=== PATIENT | female | born 1970 | race Caucasian/White ===

== ENCOUNTER 2017-10-07 22:27 | Inpatient (IN) | payer MEDICARE, MEDICAID ==
--- NOTE | 2017-10-07 22:33 | ED Physician Chart ---
ED Chief Complaint/HPI - Patient Information Date Seen:: 10/07/17 Time Seen:: 22:15 Chief Complaint:: Seizures History of Present Illness:: onset x one day of intermittent seizures x 3; no report of trauma, H/As, neck pain, C/P, SOb, Abd. Pain, A/N/V/D/c, fever, chills, or urinary s/s Allergies:: Allergies Allergy/AdvReac Type Severity Reaction Status Date / Time No Known Allergies Allergy Verified 05/06/16 08:46 Historian:: Patient, EMS Review:: Nurse's Note Reviewed, Old Chart Reviewed, EMS run form Reviewed ED Review of Systems - Review of Systems General/Constitutional: No fever, No chills, No weight loss, No weakness, No diaphoresis, No edema, No loss of appetite Skin: No skin lesions, No rash, No bruising Head: No headache, No light-headedness Eyes: No loss of vision, No pain, No diplopia ENT: No earache, No nasal drainage, No sore throat, No tinnitus Neck: No neck pain, No swelling, No thyromegaly, No stiffness, No mass noted Cardio Vascular: No chest pain, No palpitations, No PND, No orthopnea, No edema Pulmonary: No SOB, No cough, No sputum, No wheezing GI: No nausea, No vomiting, No diarrhea, No pain, No melena, No hematochezia, No constipation, No hematemesis G/U: No dysuria, No frequency, No hematuria, No nacturia Diver Helper: No vaginal discharge, No abnormal vaginal bleed, No contraction Musculoskeletal: No bone or joint pain, No back pain, No muscle pain Endocrine: No polyuria, No polydipsia Psychiatric: No prior psych history, No depression, No anxiety, No suicidal ideation, No homicidal ideation, No auditory hallucination, No visual hallucination Hematopoietic: No bruising, No lymphadenopathy Allergic/Immuno: No urticaria, No angioedema Neurological: No syncope, No focal symptoms, No weakness, No paresthesia, No headache, Seizure, No dizziness, Confusion, No vertigo ED Past Medical History - Past Medical History Obtainable: Yes Past Medical History: PUD/GERD, Seizures, Arthritis, Dementia Family History: Diabetes Melitus, HTN Social History: Non Smoker, No Alcohol, No Drug Use, Single, Care Facility Surgical History: PEG/GTube Psychiatricy History: Dementia Medication: Reviewed Family Medical History - Family Member Nephew History Unknown: Yes ED Physical Exam - Physical Examination General/Constitutional: Awake, Well-developed, well-nourished, Alert, No distress, GCS 15, Non-toxic appearing, Ambulatory Head: Atraumatic Eyes: Lids, conjuctiva normal, PERRL, EOMI Skin: Nl inspection, No rash, No skin lesions, No ecchymosis, Well hydrated, No lymphadenopathy ENMT: External ears, nose nl, TM canals nl, Nasal exam nl, Lips, teeth, gums nl , Oropharynx nl, Tonsils nl Neck: Nontender, Full ROM w/o pain, No JVD, No nuchal rigidity, No bruit, No mass, No stridor Respiratory: Nl effort/Exclusion Other Respiratory comments:: Lungs: + Rales and Rhonci Cardio Vascular: RRR, No murmur, gallop, rubs, NL S1 S2, Carotid/Femoral/Distal pulses equal bilaterally GI: No tenderness/rebounding/guarding, No organomegaly, No hernia, Normal BS's, Nondistended, No mass/bruits, No McBurney tenderness : No CVA tenderness Extremities: No tenderness or effusion, Full ROM, normal strength in all extremities, No edema, Normal digits & nails Neuro/Psych: Alert/oriented, DTR's symmetric, Normal sensory exam, Normal motor strength, Judgement/insight normal, Mood normal, Normal gait, No focal deficits Misc: Normal back, No paraspinal tenderness ED Labs/Radiology/EKG Results - Lab Results Comments:: WBC: 12.6; Na+: 134; LA: 3.11 - Radiology Results Comments:: CXR: + Infiltrate - EKG Interpretations EKG Time:: 01:32 Rate & Rhythm: 81; NSR Comments:: non-specific st-t changes ED Septic Shock - . Is Septic Shock (SBP<90, OR Lactate>4 mmol\L) present?: No ED Reassessment (Disposition) - Reassessment Reassessment Condition:: Improved - Diagnosis Diagnosis:: PNA; Sepsis; Leukocytosis; Epilepsy - Aftercare/Follow up Instructions Aftercare/Follow-Up Instructions:: Counseled pt regarding lab results/diagnosis & need follow up, Counseled pt & family regarding lab results/diagnosis & need follow up - Patient Disposition Discharge/Transfer:: Acute Care w/in this hosp Accepting Physician:: Dr. Javier Time Called:: 29 Time Responded:: 00:30 Admitted to:: Telemetry Spoke to:: Dr. Javier Admitting Medical Physician:: Dr. Javier Condition at Disposition:: Stable, Improved
[2017-10-08 00:08] LABS: HEMATOCRIT 40.1 % (41.0-60); HEMOGLOBIN 13.7 gm/dL (12-16); MANUAL DIFF REQUIRED? YES; MEAN CELL VOLUME 94.5 fl (81-100); MEAN CORPUSCULAR HEMOGLOBIN 32.2 pg (27.0-31.0); MEAN CORPUSCULAR HGB CONC 34.1 pg (28.0-36.0); MEAN PLATELET VOLUME 8.4 fl; RED BLOOD COUNT 4.25 Mil/cmm (3.80-5.10); RED CELL DISTRIBUTION WIDTH 12.5 % (11.5-20.0)
[2017-10-08 00:17] LABS: PLATELET COUNT 240 Th/cmm (150-400); WHITE BLOOD COUNT 12.6 Th/cmm (4.8-10.8)
[2017-10-08 00:24] LABS: ALB/GLOB RATIO 1.4 (1.0-1.8); ALBUMIN 4.3 gm/dL (3.7-5.3); ALKALINE PHOSPHATASE 77 U/L (34-104); ANION GAP 14.8 (7.0-16.0); BILIRUBIN,TOTAL 0.3 mg/dL (0.3-1.0); BUN - UREA NITROGEN 16 mg/dL (7-25); CALCIUM SERUM 9.3 mg/dL (8.6-10.3); CARBON DIOXIDE 24.5 mEq/L (21.0-31.0); CHLORIDE 99 mEq/L (98-107); CHOLESTEROL 178 mg/dL (<200); CREATININE - SERUM 0.5 mg/dL (0.6-1.2); CREATININE KINASE 57 U/L (30-223); GFR AFRICAN-AMERICAN > 60.0 ml/min (>90); GFR NON AFRICAN-AMERICAN > 60.0 ml/min; GLUCOSE 119 mg/dL (70-105); HDL -HIGH DENSITY LIPOPROTEIN 66 mg/dL (23-92); INR 0.99 (0.5-1.4); POTASSIUM SERUM 4.3 mEq/L (3.5-5.1); PROTHROMBIN TIME (TEST) 10.3 SECONDS (9.5-11.5); SGOT 23 U/L (13-39); SGPT/ALT 25 U/L (7-52); SODIUM SERUM 134 mEq/L (136-145); TOTAL PROTEIN,SERUM 7.4 gm/dL (6.0-8.3); TRIGLYCERIDES 54 mg/dL (<150)
[2017-10-08 00:34] LABS: BAND NEUTROPHILE 4 % (0-10); EOSINOPHIL 1 % (0-5); LYMPHOCYTE 7 % (20-50); MONOCYTE 3 % (2-10); NEUTROPHILS 85 % (40-80); PLATELET ESTIMATE ADEQUATE (NORMAL); TOTAL CELLS COUNTED 100
[2017-10-08] MEDS: Sodium Chloride 0.9% 1,000 ML IV ONE ×2 (03:00→10:53)
[2017-10-08] MEDS ORDERED: cefTRIAXone 1 GM in Sodium Chloride 0.9% 50 ML IV ONE (03:01)
[2017-10-08] MEDS ORDERED: metroNIDAZOLE 500mg/NS 100mL 500 MG/100 ML BAG IV ONE (06:53)
[2017-10-08] MEDS ORDERED: Albuterol/Ipratropium Neb 3 ML AERS HHN PRN (06:56)
[2017-10-08] MEDS ORDERED: Azithromycin 250 MG in Sodium Chloride 0.9% 250 ML IV SCH (07:00)
--- NOTE | 2017-10-08 07:44 | Diagnostic Imaging Report ---
Portable chest x-ray Time: 0150 hours History: Cough Allowing for portable technique the heart size is normal. No focal pulmonary parenchymal processes. No hilar or mediastinal abnormalities. Incidentally noted distention of stomach with air. Clinical correlation recommended. Impression: No acute abnormalities.
[2017-10-08] MEDS ORDERED: Fleet Enema 135 mL RC PRN (09:30)
[2017-10-08] MEDS ORDERED: Non-Formulary Item 1 EA (Calcium Carbonate [Calcium Carbonate] 1,250 MG) GT SCH (09:30)
[2017-10-08] MEDS ORDERED: RUFINAMIDE 400 MG GT SCH (09:30)
[2017-10-08] MEDS ORDERED: Non-Formulary Item 1 EA (Lamotrigine [Lamotrigine] 200 MG) GT SCH (09:30)
[2017-10-08] MEDS ORDERED: Non-Formulary Item 1 EA (Dexlansoprazole [Dexilant] 60 MG) GT SCH (09:30)
[2017-10-08 09:34] LABS: % BASOPHILS 0.5 % (0.0-2.0); % EOSINOPHILS 0.1 % (0.0-5.0); % MONOCYTES 8.6 % (2.0-10.0); % NEUTROPHILS 76.8 % (40.0-80.0); HEMATOCRIT 37.4 % (41.0-60); HEMOGLOBIN 12.5 gm/dL (12-16); MEAN CELL VOLUME 96.5 fl (81-100); MEAN CORPUSCULAR HEMOGLOBIN 32.3 pg (27.0-31.0); MEAN CORPUSCULAR HGB CONC 33.4 pg (28.0-36.0); MEAN PLATELET VOLUME 8.9 fl; MONOCYTE ABSOLUTE 0.6 Th/cmm (0.3-1.0); NEUTROPHILE ABSOLUTE 5.9 Th/cmm (1.8-8.0); PLATELET COUNT 215 Th/cmm (150-400); RED BLOOD COUNT 3.87 Mil/cmm (3.80-5.10); RED CELL DISTRIBUTION WIDTH 12.4 % (11.5-20.0)
[2017-10-08 09:37] LABS: WHITE BLOOD COUNT 7.5 Th/cmm (4.8-10.8)
[2017-10-08 09:58] LABS: ANION GAP 13.7 (7.0-16.0); BUN - UREA NITROGEN 11 mg/dL (7-25); CALCIUM SERUM 8.6 mg/dL (8.6-10.3); CARBON DIOXIDE 22.6 mEq/L (21.0-31.0); CHLORIDE 106 mEq/L (98-107); CREATININE - SERUM 0.5 mg/dL (0.6-1.2); GFR AFRICAN-AMERICAN > 60.0 ml/min (>90); GFR NON AFRICAN-AMERICAN > 60.0 ml/min; GLUCOSE 88 mg/dL (70-105); POTASSIUM SERUM 4.3 mEq/L (3.5-5.1); SODIUM SERUM 138 mEq/L (136-145)
[2017-10-08] MEDS: carBAMazepine 200 mg/10 mL UDC GT SCH ×3 (10:59→21:17)
[2017-10-08] MEDS: Pantoprazole 40 mg/Packet PO SCH (15:47)
[2017-10-08] MEDS ORDERED: Pneumococcal Vaccine 0.5 mL Vial IM ONE (16:41)
[2017-10-08] MEDS ORDERED: Non-Formulary Item 1 EA (Trazodone Hcl [Trazodone Hcl] 100 MG) GT SCH (21:00)
[2017-10-08] MEDS: Sodium Chloride 0.9% 1,000 ML IV SCH (21:19)
[2017-10-09] MEDS ORDERED: cefTRIAXone 1 GM in Sodium Chloride 0.9% 50 ML IV SCH (03:00)
[2017-10-09 05:25] LABS: % EOSINOPHILS 1.2 % (0.0-5.0); % LYMPHOCYTES 37.7 % (20.0-50.0); % MONOCYTES 10.6 % (2.0-10.0); % NEUTROPHILS 50.5 % (40.0-80.0); EOSINOPHILE ABSOLUTE 0.1 Th/cmm (0.1-0.4); HEMOGLOBIN 10.9 gm/dL (12-16); MEAN CELL VOLUME 96.5 fl (81-100); MEAN CORPUSCULAR HEMOGLOBIN 32.5 pg (27.0-31.0); MEAN CORPUSCULAR HGB CONC 33.6 pg (28.0-36.0); MEAN PLATELET VOLUME 8.6 fl; MONOCYTE ABSOLUTE 0.6 Th/cmm (0.3-1.0); NEUTROPHILE ABSOLUTE 2.7 Th/cmm (1.8-8.0); PLATELET COUNT 186 Th/cmm (150-400); RED BLOOD COUNT 3.35 Mil/cmm (3.80-5.10); RED CELL DISTRIBUTION WIDTH 12.7 % (11.5-20.0)
[2017-10-09 05:28] LABS: HEMATOCRIT 32.3 % (41.0-60); WHITE BLOOD COUNT 5.4 Th/cmm (4.8-10.8)
[2017-10-09 05:46] LABS: ANION GAP 7.8 (7.0-16.0); BUN - UREA NITROGEN 12 mg/dL (7-25); CALCIUM SERUM 8.2 mg/dL (8.6-10.3); CHLORIDE 109 mEq/L (98-107); CREATININE - SERUM 0.4 mg/dL (0.6-1.2); GFR AFRICAN-AMERICAN > 60.0 ml/min (>90); GFR NON AFRICAN-AMERICAN > 60.0 ml/min; GLUCOSE 95 mg/dL (70-105); MAGNESIUM 2.1 mg/dL (1.9-2.7); POTASSIUM SERUM 3.8 mEq/L (3.5-5.1); SODIUM SERUM 138 mEq/L (136-145)
[2017-10-09 07:22] LABS: URINE MICROSCOPIC INDICATED? YES; URINE SOURCE CATH
[2017-10-09 07:45] LABS: URINE BILIRUBIN NEGATIVE (NEGATIVE); URINE BLOOD NEGATIVE (NEGATIVE); URINE GLUCOSE (UA) NEGATIVE (NEGATIVE); URINE KETONE NEGATIVE (NEGATIVE); URINE LEUKOCYTE ESTERASE NEGATIVE (NEGATIVE); URINE NITRATE NEGATIVE (NEGATIVE); URINE PROTEIN NEGATIVE (NEGATIVE); URINE UROBILINOGEN 0.2 E.U./dL (0.2 - 1.0)
[2017-10-09 07:50] LABS: URINE CLARITY CLEAR (CLEAR); URINE COLOR YELLOW
[2017-10-09 07:52] LABS: URINE RBC 0-2 /hpf (0-5)
[2017-10-09 07:53] LABS: URINE BACTERIA 1+ /hpf (NONE SEEN); URINE EPITHELIAL CELLS MODERATE /lpf (FEW)
--- NOTE | 2017-10-09 08:34 | Diagnostic Imaging Report ---
CHEST X-RAY: AP view INDICATION: Pneumonia COMPARISON: 10/08/2017 FINDINGS: Interstitial lung markings are noted with no focal consolidation or effusions. Gaseous distended stomach and loops of bowel are noted. Heart size is normal. IMPRESSION: Increased interstitial lung markings. No focal consolidation identified Gaseous distended stomach and loops of bowel. If indicated, acute abdominal series may be obtained for further assessment.
[2017-10-09] MEDS: Pantoprazole 40 mg/Packet PO SCH (09:56)
[2017-10-09] MEDS: carBAMazepine 200 mg/10 mL UDC GT SCH ×4 (09:56→21:10)
--- NOTE | 2017-10-09 12:42 | History & Physical ---
ADMIT DATE: CHIEF COMPLAINT: Seizures x 3, lung congestion. HISTORY OF PRESENT ILLNESS: This is a 47-year-old female who was transferred from assisted living facility for the above-mentioned symptomatology. She does have a history of mental retardation, autism, seizure disorder, osteoporosis, history of PEG placement secondary to dysphagia. Pertinent findings at the ER include a white count of 12.6 with 85% neutrophils, sodium 134, lactic acid of 3.11. The patient has been admitted to telemetry for management and care. At this time, she appears to be comfortable in no respiratory distress. PAST MEDICAL HISTORY: As noted above. Infantile autism, acid reflux disease, osteoporosis, history of falls. PAST SURGICAL HISTORY: PEG placement. SOCIAL HISTORY: No tobacco, ETOH or illicit drug usage. She lives at [facility]. ALLERGIES: Clobazam. OUTPATIENT MEDICATIONS: Bisacodyl 10 mg rectally every day, calcium carbonate 1250 b.i.d., carbamazepine 10 mL q.i.d., Dexilant 60 mg every day, lamotrigine 200 mg b.i.d., loratadine 10 mg every day, Fleet enema per rectum every day p.r.n. for severe constipation, Seroquel 50 t.i.d., Banzel 400 mg b.i.d. and trazodone 100 mg at bedtime. REVIEW OF SYSTEMS: Not able to be done given the patient's condition. PHYSICAL EXAMINATION: VITAL SIGNS: Temperature 97.4, pulse 79, respirations 16, BP 105/62, satting 99% on room air. GENERAL: Well-nourished, thin, developmentally delayed female who appears to be in no distress. HEAD: She is normocephalic, atraumatic. Pupils are reactive to light. Extraocular movements are intact. Oropharynx appears to be mildly dry. NECK: There is no JVD or LAD. It is supple. No thyromegaly noted. CARDIAC: Regular rate and rhythm with no audible murmurs. LUNGS: Coarse rhonchi bilaterally. ABDOMEN: Soft, supple, nontender, nondistended. There is a PEG tube in place. EXTREMITIES: There is no edema in lower extremity. LABORATORY DATA: White count 12.6, H and H 13/40 with a platelet count of 240, 85% neutrophils, 7% lymphocytes. INR 0.99. Sodium 134, potassium 4.3, chloride 99, CO2 24, BUN 16, creatinine 0.5, glucose 119. Lactic acid level 3.11. LFTs were essentially within normal limits. UA negative for nitrites, ketones, proteins, negative for leukocyte esterase. DIAGNOSTICS: X-ray shows no acute abnormalities. ASSESSMENT: 1. Seizure disorder, likely secondary to possible sepsis. 2. Sepsis with a possible lung infection being the cause of it. 3. Pneumonia versus bronchitis. 4. History of dysphagia, status post PEG placement. 5. History of peptic ulcer disease/GERD. 6. Dementia. 7. Mental retardation. 8. Elevated lactic acid level. PLAN: The patient has been admitted to a telemetry galvan for further management and care. She has been placed on IV fluids and has been started on IV antibiotics, namely Rocephin and Zithromax for possible community-acquired pneumonia. She will be kept on her other medications as scheduled. We will continue to monitor daily labs including lactic acid level. She will be placed on seizure precautions and we will monitor her carbamazepine level. JOB# [id number]
[2017-10-09] MEDS: Sodium Chloride 0.9% 1,000 ML IV SCH (15:01)
[2017-10-09] MEDS ORDERED: Azithromycin 250 MG in Sodium Chloride 0.9% 250 ML IV SCH (21:00)
[2017-10-10] MEDS: Sodium Chloride 0.9% 1,000 ML IV SCH ×2 (04:12→20:59)
[2017-10-10 06:25] LABS: % BASOPHILS 2.5 % (0.0-2.0); % EOSINOPHILS 1.9 % (0.0-5.0); % LYMPHOCYTES 28.7 % (20.0-50.0); % MONOCYTES 8.8 % (2.0-10.0); % NEUTROPHILS 58.1 % (40.0-80.0); BASOPHILE ABSOLUTE 0.1 Th/cumm (0-0.2); EOSINOPHILE ABSOLUTE 0.1 Th/cmm (0.1-0.4); HEMOGLOBIN 13.6 gm/dL (12-16); LYMPHOCYTE ABSOLUTE 1.5 Th/cmm (1.5-3.0); MEAN CELL VOLUME 96.2 fl (81-100); MEAN CORPUSCULAR HEMOGLOBIN 31.6 pg (27.0-31.0); MEAN CORPUSCULAR HGB CONC 32.8 pg (28.0-36.0); MEAN PLATELET VOLUME 9.9 fl; MONOCYTE ABSOLUTE 0.5 Th/cmm (0.3-1.0); NEUTROPHILE ABSOLUTE 3.2 Th/cmm (1.8-8.0); PLATELET COUNT 207 Th/cmm (150-400); RED BLOOD COUNT 4.29 Mil/cmm (3.80-5.10); RED CELL DISTRIBUTION WIDTH 12.3 % (11.5-20.0); WHITE BLOOD COUNT 5.4 Th/cmm (4.8-10.8)
[2017-10-10 06:29] LABS: ANION GAP 12.5 (7.0-16.0); BUN - UREA NITROGEN 5 mg/dL (7-25); CALCIUM SERUM 9.1 mg/dL (8.6-10.3); CARBON DIOXIDE 27.4 mEq/L (21.0-31.0); CHLORIDE 102 mEq/L (98-107); CREATININE - SERUM 0.5 mg/dL (0.6-1.2); GFR AFRICAN-AMERICAN > 60.0 ml/min (>90); GFR NON AFRICAN-AMERICAN > 60.0 ml/min; GLUCOSE 92 mg/dL (70-105); POTASSIUM SERUM 3.9 mEq/L (3.5-5.1); SODIUM SERUM 138 mEq/L (136-145)
[2017-10-10 06:30] LABS: MAGNESIUM 2.1 mg/dL (1.9-2.7)
[2017-10-10 06:50] LABS: HEMATOCRIT 41.3 % (41.0-60)
[2017-10-10] MEDS: carBAMazepine 200 mg/10 mL UDC GT SCH ×4 (08:30→21:55)
[2017-10-10] MEDS: Pantoprazole 40 mg/Packet PO SCH (08:30)
[2017-10-10] MEDS ORDERED: Probiotic Screen MC PRN (10:30)
[2017-10-11 07:16] LABS: EOSINOPHILE ABSOLUTE 0.3 Th/cmm (0.1-0.4); HEMATOCRIT 41.3 % (41.0-60); HEMOGLOBIN 13.7 gm/dL (12-16); LYMPHOCYTE ABSOLUTE 1.4 Th/cmm (1.5-3.0); MANUAL DIFF REQUIRED? YES; MEAN CELL VOLUME 96.6 fl (81-100); MEAN CORPUSCULAR HEMOGLOBIN 32.1 pg (27.0-31.0); MEAN CORPUSCULAR HGB CONC 33.2 pg (28.0-36.0); MEAN PLATELET VOLUME 8.5 fl; MONOCYTE ABSOLUTE 0.8 Th/cmm (0.3-1.0); NEUTROPHILE ABSOLUTE 2.7 Th/cmm (1.8-8.0); PLATELET COUNT 197 Th/cmm (150-400); RED BLOOD COUNT 4.28 Mil/cmm (3.80-5.10); RED CELL DISTRIBUTION WIDTH 12.3 % (11.5-20.0); WHITE BLOOD COUNT 5.2 Th/cmm (4.8-10.8)
[2017-10-11 07:28] LABS: ANION GAP 12.6 (7.0-16.0); BUN - UREA NITROGEN 9 mg/dL (7-25); CALCIUM SERUM 9.1 mg/dL (8.6-10.3); CARBON DIOXIDE 26.3 mEq/L (21.0-31.0); CHLORIDE 103 mEq/L (98-107); CREATININE - SERUM 0.4 mg/dL (0.6-1.2); GFR AFRICAN-AMERICAN > 60.0 ml/min (>90); GFR NON AFRICAN-AMERICAN > 60.0 ml/min; GLUCOSE 88 mg/dL (70-105); POTASSIUM SERUM 3.9 mEq/L (3.5-5.1); SODIUM SERUM 138 mEq/L (136-145)
[2017-10-11] MEDS: Lactobacillus Rhamnosus 10 Billion CFU Capsule PO SCH (08:12)
[2017-10-11] MEDS: Pantoprazole 40 mg/Packet PO SCH (08:13)
[2017-10-11] MEDS: carBAMazepine 200 mg/10 mL UDC GT SCH ×4 (08:13→20:30)
[2017-10-11 08:30] LABS: ATYPICAL LYMPH 4 %; BAND NEUTROPHILE 2 % (0-10); BASOPHIL 1 % (0-3); EOSINOPHIL 6 % (0-5); LYMPHOCYTE 27 % (20-50); MONOCYTE 16 % (2-10); NEUTROPHILS 44 % (40-80); PLATELET ESTIMATE ADEQUATE (NORMAL); TOTAL CELLS COUNTED 100
--- NOTE | 2017-10-11 09:27 | Diagnostic Imaging Report ---
Portable chest x-ray Time: 0757 hours History: Bronchitis Allowing for portable technique the heart size is normal. No focal pulmonary parenchymal processes. No hilar or mediastinal abnormalities. There is evidence for air distention stomach. Gastrostomy tube is noted. Clinical correlation recommended. Distention small bowel appreciated. Impression: No acute abnormalities.
[2017-10-11] MEDS: Sodium Chloride 0.9% 1,000 ML IV SCH (14:19)
[2017-10-12] MEDS: Sodium Chloride 0.9% 1,000 ML IV SCH ×2 (06:00→18:19)
[2017-10-12] MEDS: Pantoprazole 40 mg/Packet PO SCH (10:06)
[2017-10-12] MEDS: Lactobacillus Rhamnosus 10 Billion CFU Capsule PO SCH (10:06)
[2017-10-12] MEDS: carBAMazepine 200 mg/10 mL UDC GT SCH ×5 (10:06→21:07)
[2017-10-13] MEDS: carBAMazepine 200 mg/10 mL UDC GT SCH ×4 (10:03→22:56)
[2017-10-13] MEDS: Pantoprazole 40 mg/Packet PO SCH (10:04)
[2017-10-13] MEDS: Lactobacillus Rhamnosus 10 Billion CFU Capsule PO SCH (13:36)
[2017-10-14] MEDS: Sodium Chloride 0.9% 1,000 ML IV SCH (01:15)
[2017-10-14] MEDS ORDERED: Lactobacillus Rhamnosus GG 15 Billion CFU CAP.SPRINK PO SCH (09:00)
[2017-10-14] MEDS: carBAMazepine 200 mg/10 mL UDC GT SCH ×2 (09:51→13:06)
[2017-10-14] MEDS: Pantoprazole 40 mg/Packet PO SCH (09:52)
--- NOTE | 2017-10-14 12:08 | Discharge Summary ---
DATE OF DISCHARGE: 10/14/2017 ADMITTING DIAGNOSES: 1. History of seizure disorder with seizure activity. 2. Fever, sepsis, etiologies include bronchitis versus viral infection. 3. Bronchitis versus early pneumonia. 4. Elevated lactic acid 5. Leukocytosis. SECONDARY DIAGNOSES: 1. History of dysphagia, status post PEG placement. 2. History of peptic ulcer disease, acid reflux disease. 3. Dementia with behavioral disorder. 4. History of intellectual disability. 5. History of epilepsy. DISCHARGE DIAGNOSES: 1. Seizure disorder with seizure activity-resolved. 2. Fever/sepsis-resolved. Clinically stable. 3. Bronchitis versus early pneumonia, clinically improved. CONSULTANTS: There were no consultants used during this admission. MAJOR PROCEDURES: There were no major procedures done during this admission. BRIEF HOSPITAL COURSE: This is a 47-year-old female, who was transferred from her assisted living facility with 3 episodes of seizure and lung congestion. In the ER, pertinent findings included a white count of 12.6 with 85% neutrophils and a lactic acid of 3.11. She was admitted to the tele galvan for fever, rule out sepsis; seizure disorder; and elevated lactic acid level. She was placed on IV antibiotics, namely Rocephin and Zithromax to cover for community-acquired pneumonia and IV fluids as well as other supportive care and treatment. Her white count improved by hospital day #2 to a level of 7.5 and her lactic acid level also was noted to be normal by hospital day #2 at 1.65. Initial x-ray reports done on 10/08/2017 showed no acute abnormalities and a followup x-ray done on 10/09/2017 and 10/11/2017 remained negative. Her congestion did improve by hospital day #1. Vital sign carter, she has remained asymptomatic since admission. She did have an episode of agitation by around hospital day #2, falling from her bed, but showing no acute injuries. Since then, she has been ordered a one to one sitter, but again she appears to be more comfortable at this time. Of note, her UA was also negative for UTI. CONDITION ON DISCHARGE: Stable. MEDICATIONS ON DISCHARGE: Tylenol 650 q. 4 hours p.r.n. for fever or pain, bisacodyl 10 mg per rectum q. daily p.r.n., calcium carbonate 1250 b.i.d., carbamazepine 10 mL b.i.d. to q.i.d., Dexilant 60 mg q. daily, lamotrigine 200 mg b.i.d., Claritin 10 q. daily, Fleet Enema per rectum q. day p.r.n. for severe constipation, Seroquel 50 mg t.i.d., Banzel 400 mg b.i.d., trazodone 100 mg at bedtime, and Levaquin 500 mg p.o. q. day x 7 days. DISPOSITION: The patient will be discharged back to [facility] under Dr. Christopher's care. [facility]# [id number] MTDPrincess
== END 2017-10-14 15:40 | disposition home or self-care (01) | DRG 871 ==
LOC: ER 22:27 → TELE 10-08 06:25
PROVIDERS: ADMIT Internal Medicine; ATTEND Internal Medicine
DX: A41.9 Sepsis, unspecified organism (principal); J18.9 Pneumonia, unspecified organism; F03.91 Unspecified dementia, unspecified severity, with behavioral disturbance; G40.909 Epilepsy, unspecified, not intractable, without status epilepticus; J40 Bronchitis, not specified as acute or chronic; R13.10 Dysphagia, unspecified; Z93.1 Gastrostomy status; K21.9 Gastro-esophageal reflux disease without esophagitis; F79 Unspecified intellectual disabilities; K27.9 Peptic ulcer, site unspecified, unspecified as acute or chronic, without hemorrhage or perforation; M81.0 Age-related osteoporosis without current pathological fracture; M19.90 Unspecified osteoarthritis, unspecified site; Z83.3 Family history of diabetes mellitus; Z82.49 Family history of ischemic heart disease and other diseases of the circulatory system; Z88.8 Allergy status to other drugs, medicaments and biological substances
CPT/HCPCS: 36415-UA; 71010-TC; 80048-TC; 80053-TC; 80061-TC; 80156-TC; 81001-TC; 82550-TC; 83605; 83735-TC; 83880-TC; 84484-TC; 84703-TC; 85007-TC; 85025-TC; 85027-TC; 85610-TC; 90799; 93005; 94760; J0456; J0696; J2060; J7030; Z7610